=== PATIENT | male | born 1955 | race Caucasian/White ===

== ENCOUNTER 2021-09-01 19:03 | Emergency (ER) | payer BC ==
[~2021-09-01] VITALS: Ht 154.9 cm; Wt 63.0 kg
--- NOTE | 2021-09-01 19:03 | NUR ---
TO ER BED 3, [id number] FROM [employer] C/O SEIZURE LASTED FOR 40SECONDS, NO TRAUMA, AAOX2, BREATHING EVEN AND NON LABORED, SEIZURE PRECAUTION IN PLACE, AWAITING MD ORDERS
--- NOTE | 2021-09-01 19:30 | NUR ---
RECEIVED REPORT FROM CLAUDIA CHAUDHARY. PT IS PRESENTLY AT CT DEPT.
--- NOTE | 2021-09-01 19:31 | NUR ---
BACK FROM CT VIA [facility]
--- NOTE | 2021-09-01 19:31 | NUR ---
URINE COLLECTED AND SENT TO LAB
[2021-09-01] MEDS ORDERED: ONDANSETRON HCL/PF 4 MG/2 ML VIAL ONE (19:49)
--- NOTE | 2021-09-01 20:00 | NUR ---
PATIENT IS AAOX4. ABLE TO ANSWER QUESTIONS. ATTACHED TO MONITOR. PLACED ON SEIZURE PRECAUTION. VITALS CHECKED.
[2021-09-01 20:06] LABS: BASOPHILS # (AUTO) 0.1 K/uL (0.0-0.2); BASOPHILS % (AUTO) 0.6 % (0.0-2.0); EOSINOPHILS % (AUTO) 2.2 % (0.0-6.0); HEMATOCRIT 42 % (39-51); HEMOGLOBIN 14.6 g/dL (13.5-17.5); LYMPHOCYTES # (AUTO) 1.6 K/uL (0.8-4.8); LYMPHOCYTES % (AUTO) 16.9 % (20.0-44.0); MEAN CORPUSCULAR HGB CONC 35 g/dl (31.0-36.0); MEAN CORPUSCULAR VOLUME 87 fL (80-96); MONOCYTES # (AUTO) 0.6 K/uL (0.1-1.30); MONOCYTES % (AUTO) 5.7 % (2.0-12.0); NEUTROPHILS # (AUTO) 7.2 K/uL (1.8-8.9); NEUTROPHILS % (AUTO) 74.6 % (43.0-81.0); PLATELET COUNT (AUTO) 209 K/uL (150-450); RED BLOOD CELL COUNT(AUTO) 4.81 MIL/uL (4.5-6.0); WHITE BLOOD COUNT (AUTO) 9.7 K/uL (4.3-11.0)
[2021-09-01 20:13] LABS: CALCIUM, SERUM 9.1 mg/dL (8.5-10.1); CARBON DIOXIDE 24 mmol/L (21-32); CHLORIDE 106 mmol/L (98-107); CREATININE 1.4 mg/dL (0.6-1.3); GLUCOSE 90 mg/dL (74-106); POTASSIUM 3.9 mmol/L (3.5-5.1); SODIUM SERUM 141 mmol/L (136-145); UREA NITROGEN, BLOOD 24 mg/dL (7-18)
[2021-09-01 20:19] LABS: ALANINE AMINOTRANSFERASE 29 U/L (12-78); ALKALINE PHOSPHATASE 100 U/L (46-116); ASPARTATE AMINOTRANSFERASE 17 U/L (15-37); BILIRUBIN,DIRECT 0.3 mg/dL (0.0-0.2); BILIRUBIN,TOTAL 1.3 mg/dL (0.2-1.0); TOTAL PROTEIN, SERUM 7.3 g/dL (6.4-8.2)
[2021-09-01 20:35] LABS: ALCOHOL, BLOOD < 3 mg/dL (0-0)
[2021-09-01] MEDS ORDERED: LEVETIRACETAM (250 MG) 250 MG TABLET PO ONE ×2 (20:55→21:00)
[2021-09-01] MEDS ORDERED: LEVE500T9 PO (21:05)
--- NOTE | 2021-09-01 22:15 | NUR ---
NOTICED PATIENT HAVING ALTERED MENTAL STATUS. TRIED TALKING TO HIM BUT HE CANNOT RESPOND TO ANY QUESTIONS VERBALLY. CN AND DR LUI MADE AWARE.
--- NOTE | 2021-09-01 22:28 | NUR ---
URINE SPECIMEN SENT TO LAB
--- NOTE | 2021-09-01 22:54 | NUR ---
ROSELINE GIRLFRIEND [phone]
[2021-09-01] MEDS ORDERED: ONDANSETRON 4 MG TAB.RAPDIS ONE (23:46)
[2021-09-01 23:48] VITALS: BP 129/77
--- NOTE | 2021-09-01 23:48 | NUR ---
Patient discharged to home in stable condition. Written and verbal after care instructions given. Patient verbalizes understanding of instruction.
[2021-09-02] MEDS ORDERED: ONDANSETRON 4 MG TAB.RAPDIS SL ONE
== END 2021-09-01 23:48 | disposition home or self-care (01) ==
LOC: ER 19:10
DX: G40.909 Epilepsy, unspecified, not intractable, without status epilepticus (principal); Z86.69 Personal history of other diseases of the nervous system and sense organs; Z87.442 Personal history of urinary calculi; Z88.0 Allergy status to penicillin; Z79.899 Other long term (current) drug therapy
CPT/HCPCS: 36415; 70450-TC; 71045-TC; 80048-TC; 80076-TC; 85025-TC; 85730-TC; G0480; J2405; Q0162